=== PATIENT | male | born 1965 | race African-American/Black ===

== ENCOUNTER 2016-05-19 10:48 | Emergency (ER) | payer BC ==
[~2016-05-19] VITALS: Ht 177.8 cm; Wt 79.4 kg
[2016-05-19] MEDS ORDERED: ANASTROZOLE1 MG PO (11:00)
[2016-05-19] MEDS ORDERED: TESTOSTERO200 MG/1 M IM (11:00)
[2016-05-19] MEDS ORDERED: REPATHA SY140 MG/1 M SQ (11:00)
[2016-05-19] MEDS ORDERED: Spironolactone ORAL (11:00)
[2016-05-19] MEDS ORDERED: TRUVADA 200 MG1 EAC1 ORAL (11:00)
[2016-05-19] MEDS ORDERED: CARVEDILOL25 MG ORAL (11:00)
[2016-05-19 11:10] VITALS: BP 156/102
[2016-05-19] MEDS ORDERED: Ketorolac 30mg Inj IV ONE (11:15)
[2016-05-19 11:34] LABS: APPEARANCE,URINE SLIGHTLY CLOUDY
[2016-05-19 11:35] LABS: KETONES,URINE NEGATIVE (NEGATIVE); LEUKOCYTE ESTERASE ,URINE 3+ (NEGATIVE); NITRITE,URINE NEGATIVE (NEGATIVE); PROTEIN,URINE 3+ (NEGATIVE); RBC,URINE 20-30 /HPF (0 - 0); SQUAMOUS EPITHELIAL CELL,UR FEW /LPF (NONE/OCC); UROBILINOGEN,URINE NORMAL MG/DL (0.0-1.0); WBC,URINE 30-40 /HPF (0 - 0)
[2016-05-19 11:36] LABS: BACTERIA,URINE FEW /HPF
[2016-05-19 11:50] LABS: BASOPHILS % (AUTO) 0.9 % (0.0-2.0); MEAN CORPUSCULAR HEMOGLOBIN 29.6 PG (27.0-31.0); MEAN CORPUSCULAR HGB CONC 32.7 G/DL (32.0-36.0); MEAN CORPUSCULAR VOLUME 91 FL (80-99); MEAN PLATELET VOLUME 7.6 FL (6.5-10.1); MONOCYTES % (AUTO) 7.8 % (1.0-10.0); NEUTROPHILS % (AUTO) 74.3 % (45.0-75.0); PLATELET COUNT 180 K/UL (150-450); RED BLOOD COUNT 4.77 M/UL (4.70-6.10); RED CELL DISTRIBUTION WIDTH 14.8 % (11.6-14.8); WHITE BLOOD COUNT 8.5 K/UL (4.8-10.8)
[2016-05-19 12:08] LABS: ALANINE AMINOTRANSFERASE 18 U/L (3-41); ALBUMIN/GLOBULIN RATIO 1.3 (1.0-2.7); ANION GAP 15 (5-15); ASPARTATE AMINO TRANSFERASE 22 U/L (5-40); CARBON DIOXIDE 25 mEQ/L (20-30); CHLORIDE 97 mEQ/L (98-107); CREATININE 1.1 mg/dL (0.7-1.2); GLOMERULAR FILTRATION RATE > 60 mL/min (>60); HEMOLYSIS 3; LIPASE 19 U/L (< 60); SODIUM 137 mEQ/L (135-145); TOTAL PROTEIN 7.2 g/dL (6.6-8.7)
[2016-05-19 12:30] VITALS: BP 123/70
[2016-05-19] MEDS ORDERED: IBUPROFEN600 MG ORAL (12:45)
[2016-05-19] MEDS ORDERED: Cephalexin 500mg cap ORAL ONE (12:45)
[2016-05-19] MEDS ORDERED: KEFLEX500 MG ORAL (12:45)
[2016-05-19 13:03] VITALS: BP 123/70
--- NOTE | 2016-05-19 14:26 | Emergency Room Report ---
History of Present Illness General Chief Complaint: Male Urogenital Problems Source: Patient Present Illness HPI 50-year-old male presents ED for evaluation. Patient states that this morning he noticed blood in his urine. Notes dysuria. Notes some lower back pain on the left side. Pain is throbbing, 5/10, nonradiating. No other aggravating or relieving factors. Denies fevers or chills. Denies abdominal pain. Denies nausea or vomiting. Denies any other associated symptoms Allergies: Coded Allergies: No Known Allergies (Unverified , 05/19/16) Patient History Past Medical History: HTN Past Surgical History: none Pertinent Family History: none Social History: Denies: alcohol use, drug use, smoking Immunizations: UTD Reviewed Nursing Documentation: PMH: Agreed, PSxH: Agreed Nursing Documentation-PMH Past Medical History: No Stated History Hx Hypertension: Yes Review of Systems All Other Systems: negative except mentioned in HPI Physical Exam Vital Signs Date Time Temp Pulse Resp B/P Pulse Ox O2 Delivery O2 Flow Rate FiO2 05/19/16 10:51 98.6 99 14 156/102 99 05/19/16 12:30 Room Air Sp02 EP Interpretation: reviewed, normal General Appearance: no apparent distress, alert, GCS 15, non-toxic Head: normocephalic Eyes: bilateral eye PERRL, bilateral eye normal inspection ENT: normal ENT inspection Neck: normal inspection Respiratory: chest non-tender, lungs clear, normal breath sounds, speaking full sentences Cardiovascular #1: regular rate, rhythm, no edema Gastrointestinal: normal bowel sounds, non tender, soft, non-distended, no rebound Rectal: deferred Genitourinary: CVA tenderness (L) Musculoskeletal: back normal Neurologic: alert, oriented x3, responsive, motor strength/tone normal, sensory intact, speech normal Psychiatric: normal inspection Skin: normal inspection Lymphatic: normal inspection Medical Decision Making Diagnostic Impression: Primary Impression: Pyelonephritis ER Course Hospital Course 50-year-old M presents to ED with L flank pain, hematuria Differential diagnosis includes-appendicitis, cholecystitis, kidney stone, pyelonephritis Clinical course Patient placed on stretcher. After initial history and physical I ordered labs , IV fluids, pain medications and CT scan Labs - no leukocytosis, electrolytes ok, LFTs normal, UA - hematuria, + bacteria CT scan thickened bladder, no kidney stones. ? pyelonephritis Patient appears clinically well. Nontoxic. Can be safely discharged with antibiotics given Keflex in ED I feel this is a highly complex case requiring extensive working including EKG/ Rhythm strip, Xray/CT/US, Blood/urine lab work, repeat exams while in ED, and administration of strong opiates/narcotics for pain control, admission to hospital or close patient follow up. Diagnosis - pyleonephritis Stable and discharged to home with Rx Keflex. Followup with PMD. Return to ED if symptoms recur or worsen Labs Test 05/19/16 11:05 05/19/16 11:35 Urine Color Red Urine Appearance Slightly cloudy Urine pH 8.0 (4.5-8.0) Urine Specific [place] 1.010 (1.005-1.035) Urine Protein 3+ (NEGATIVE) Urine Glucose (UA) Negative (NEGATIVE) Urine Ketones Negative (NEGATIVE) Urine Occult Blood 5+ (NEGATIVE) Urine Nitrite Negative (NEGATIVE) Urine Bilirubin Negative (NEGATIVE) Urine Urobilinogen Normal MG/DL (0.0-1.0) Urine Leukocyte Esterase 3+ (NEGATIVE) Urine RBC 20-30 /HPF (0 - 0) Urine WBC 30-40 /HPF (0 - 0) Urine Squamous Epithelial Cells Few /LPF (NONE/OCC) Urine Bacteria Few /HPF (NONE) White Blood Count 8.5 K/UL (4.8-10.8) Red Blood Count 4.77 M/UL (4.70-6.10) Hemoglobin 14.1 G/DL (14.2-18.0) Hematocrit 43.2 % (42.0-52.0) Mean Corpuscular Volume 91 FL (80-99) Mean Corpuscular Hemoglobin 29.6 PG (27.0-31.0) Mean Corpuscular Hemoglobin Concent 32.7 G/DL (32.0-36.0) Red Cell Distribution Width 14.8 % (11.6-14.8) Platelet Count 180 K/UL (150-450) Mean Platelet Volume 7.6 FL (6.5-10.1) Neutrophils (%) (Auto) 74.3 % (45.0-75.0) Lymphocytes (%) (Auto) 17.0 % (20.0-45.0) Monocytes (%) (Auto) 7.8 % (1.0-10.0) Eosinophils (%) (Auto) 0.0 % (0.0-3.0) Basophils (%) (Auto) 0.9 % (0.0-2.0) Sodium Level 137 mEQ/L (135-145) Potassium Level 4.0 mEQ/L (3.4-4.9) Chloride Level 97 mEQ/L (98-107) Carbon Dioxide Level 25 mEQ/L (20-30) Anion Gap 15 (5-15) Blood Urea Nitrogen 11 mg/dL (7-23) Creatinine 1.1 mg/dL (0.7-1.2) Estimat Glomerular Filtration Rate > 60 mL/min (>60) Glucose Level 124 mg/dL (74-106) Calcium Level 9.0 mg/dL (8.6-10.2) Total Bilirubin 0.8 mg/dL (0.0-1.2) Aspartate Amino Transf (AST/SGOT) 22 U/L (5-40) Alanine Aminotransferase (ALT/SGPT) 18 U/L (3-41) Alkaline Phosphatase 33 U/L (40-129) Total Protein 7.2 g/dL (6.6-8.7) Albumin 4.1 g/dL (3.5-5.2) Globulin 3.1 g/dL Albumin/Globulin Ratio 1.3 (1.0-2.7) Lipase 19 U/L (< 60) CT/MRI/US Diagnostic Results CT/MRI/US Diagnostic Results : Imaging Test Ordered: CT A/P Impression bladder thickening, hydroureter. no stones. ? pyelonephritis Last Vital Signs Date Time Temp Pulse Resp B/P Pulse Ox O2 Delivery O2 Flow Rate FiO2 05/19/16 13:03 98.5 89 16 123/70 99 Room Air Status: improved Disposition: HOME, SELF-CARE Condition: Stable Scripts Cephalexin* (KEFLEX*) 500 Mg Capsule 500 MG ORAL Q6H, #28 CAP 0 Refills Prov: RICH MARTINEZ M.D. 05/19/16 Ibuprofen* (MOTRIN*) 600 Mg Tablet 600 MG ORAL Q8H Y for For Pain, #30 TAB 0 Refills Prov: RICH MARTINEZ M.D. 05/19/16 Patient Instructions: Pyelonephritis, Adult RICH MARTINEZ M.D. May 19, 2016 14:26
--- NOTE | 2016-05-20 09:25 | Diagnostic Imaging Report ---
Indication: Abdominal pain Technique: CT scan of the abdomen and pelvis utilizing automated exposure control without intravenous or oral contrast. Axial, sagittal and coronal images were obtained. CT dose: Total DLP 719 mGycm; CTDI vol 13.8 mGy Comparison: None Findings: Evaluation of the solid organs is limited without intravenous contrast material. Lung bases are clear. Liver, adrenal glands, spleen, pancreas and gallbladder are grossly unremarkable. No renal or ureteral calculi are identified. There is questionable mild thickening of the bladder with minimal fullness of the bilateral ureters. The small bowel loops are normal in caliber. There is a circumaortic left renal vein. There is no free intraperitoneal fluid or air. There is no evidence of appendicitis. Degenerative changes of the spine are present. Impression: Mild apparent thickening of the bladder with minimal fullness of the bilateral ureters. Correlation with urinalysis recommended as infection is not excluded. No renal or ureteral calculi. Approximately 9 mm right renal hypodensity incompletely characterized probably a cyst. Other findings as above. The CT scanner at [facility] is accredited by the [employer] and the scans are performed using protocols designed to limit radiation exposure to as low as reasonably achievable to attain images of sufficient resolution adequate for diagnostic evaluation.
== END 2016-05-19 13:03 | disposition home or self-care (01) ==
LOC: EMR 11:38
DX: N12 Tubulo-interstitial nephritis, not specified as acute or chronic (principal); I10 Essential (primary) hypertension
CPT/HCPCS: 36415; 74176; 80053; 81003; 83690; 85025; 87086; 96360; 96374; 99284; J1885

== ENCOUNTER 2016-08-22 14:58 | Emergency (ER) | payer BC ==
[~2016-08-22] VITALS: Ht 177.8 cm; Wt 79.4 kg
[~2016-08-22 14:58] MED LIST: ANASTROZOLE1 MG PO; CARVEDILOL25 MG ORAL; IBUPROFEN600 MG ORAL; KEFLEX500 MG ORAL; REPATHA SY140 MG/1 M SQ; Spironolactone ORAL; TESTOSTERO200 MG/1 M IM; TRUVADA 200 MG1 EAC1 ORAL
[2016-08-22 15:11] VITALS: BP 134/96
[2016-08-22] MEDS ORDERED: Indomethacin 25mg cap ORAL ONE (15:15)
[2016-08-22 16:00] VITALS: BP 132/95
[2016-08-22] MEDS ORDERED: CEPHALEXIN500 MG ORAL (16:21)
[2016-08-22] MEDS ORDERED: TRAMADOL HCL50 MG ORAL (16:21)
[2016-08-22] MEDS ORDERED: BACTRIM DS TAB1 EAC1 ORAL (16:21)
[2016-08-22] MEDS ORDERED: IBUPROFEN600 MG ORAL (16:21)
[2016-08-22 16:27] VITALS: BP 132/95
--- NOTE | 2016-08-22 16:27 | Diagnostic Imaging Report ---
Indication: Pain Findings: 3 views of the left wrist were obtained. No acute fractures, malalignment, erosions or periostitis are identified. Bone mineralization is within normal limits. Soft tissues are unremarkable. Impression: Negative examination of the left wrist.
--- NOTE | 2016-08-22 20:47 | Emergency Room Report ---
History of Present Illness General Chief Complaint: Pain Source: Patient, Medical Record (JACKSON GAMBINO) Present Illness HPI The patient is a 51-year-old male presenting with left wrist pain which began yesterday. Pain is described as a tennis 10 sharp sensation and does not radiate. Pain worse with movement and touch. He has also noticed redness and swelling to the area. He denies previous history of gout or injury to the wrist. He does state that he had an infection of the left elbow one month prior which was treated with antibiotics successfully. he denies any other symptoms including fever, chills, numbness or tingling. He denies hx of gout. (JACKSON GAMBINO.Nat) Allergies: Coded Allergies: No Known Allergies (Unverified , 05/19/16) Patient History Past Medical History: see triage record Pertinent Family History: none Reviewed Nursing Documentation: PMH: Agreed, PSxH: Agreed (JACKSON GAMBINO) Nursing Documentation-PMH Past Medical History: No History, Except For Hx Hypertension: Yes (JACKSON GAMBINO P.Nat) Review of Systems All Other Systems: negative except mentioned in HPI (JACKSON GAMBINO P.AShona) Physical Exam Vital Signs Date Time Temp Pulse Resp B/P Pulse Ox O2 Delivery O2 Flow Rate FiO2 08/22/16 15:02 97.7 60 16 134/96 98 Room Air Sp02 EP Interpretation: reviewed, normal General Appearance: no apparent distress, alert, GCS 15, non-toxic Head: normocephalic, atraumatic Eyes: bilateral eye PERRL, bilateral eye normal inspection ENT: hearing grossly normal, normal pharynx, no angioedema, normal voice Musculoskeletal: back normal, gait/station normal, normal range of motion, swelling - L lateral wrist, tender - TTP over the L lateral wrist Neurologic: alert, oriented x3, responsive, motor strength/tone normal, sensory intact, speech normal Psychiatric: judgement/insight normal, memory normal, mood/affect normal, no suicidal/homicidal ideation Skin: normal turgor, other - erythema to the L lateral wrist. Hot to the touch Lymphatic: no adenopathy (JACKSON GAMBINO.AShona) Medical Decision Making PA Attestation Dr. Don is my supervising physician. Patient management was discussed with my supervising physician (JACKSON GAMBINO) Diagnostic Impression: Primary Impression: Cellulitis Qualified Codes: L03.114 - Cellulitis of left upper limb ER Course The patient is a 51-year-old male presenting with left wrist pain Ddx considered include but not limited to sprain/strain, fracture, contusion, gout, cellulitis PE: vitals WNL. NAD Left wrist: There is tenderness to palpation, erythema, and edema to the lateral region. Skin is hot to the touch. Full AROM. SILT Xray unremarkable. Uric acid WNL Pt will be treated for cellulitis and is given ER precautions. He will FU with PMD Laboratory Tests Test 08/22/16 15:35 Uric Acid 4.8 mg/dL (3.0-7.5) Lab Results Impression Uric acid WNL (JACKSON GAMBINO.Nat) ER Course Scribe documentation reviewed by me and is accurate. (Mike Don M.D.) Other X-Ray Diagnostic Results Other X-Ray Diagnostic Results : X-Ray Ordered: L wrist Date: Aug 22, 2016 EP Interpretation: Yes Findings: no fractures, no dislocation, no soft tissue swelling Number of Views: 3 PA Scribe Text I am acting as scribe for my supervising physician. My supervising physician's interpretation of the L wrist xrays are there are no fractures, dislocations or soft tissue swelling. (JACKSON GAMIBNO P.A.) Last Vital Signs Date Time Temp Pulse Resp B/P Pulse Ox O2 Delivery O2 Flow Rate FiO2 08/22/16 16:27 97.7 82 17 132/95 99 Room Air Status: improved (JACKSON GAMBINO P.A.) Disposition: HOME, SELF-CARE Condition: Improved Scripts Tramadol Hcl* (ULTRAM*) 50 Mg Tablet 50 MG ORAL Q6H Y for For Pain, #10 TAB 0 Refills Prov: TERZIAN,JACKSON P.A. 08/22/16 Ibuprofen* (MOTRIN*) 600 Mg Tablet 600 MG ORAL Q8H Y for For Pain, #30 TAB 0 Refills Prov: TERZIAN,JACKSON P.A. 08/22/16 Cephalexin* (KEFLEX*) 500 Mg Capsule 500 MG ORAL EVERY 6 HOURS, #28 CAP Prov: TERZIAN,JACKSON P.A. 08/22/16 Trimethoprim/Sulfamethoxazole 160/800* (BACTRIM DS TABLET*) 1 Each Tablet 1 TAB ORAL TWICE A DAY, #14 TAB Prov: JACKSON GAMBINO 08/22/16 Patient Instructions: Cellulitis Additional Instructions: I discussed my findings with the patient. All questions and concerns have been answered. Treatment and medication compliance have been addressed. I advised the patient that they need to follow up with PMD in 3-5 days. Return to ED if pain remains or worsens, numbness or tingling occurs, new rash is noticed, fever is noticed, or if needed for any reason. Patient verbalized understanding of discharge instructions. JACKSON GAMBINO Aug 22, 2016 20:47 Mike Don M.D. Aug 23, 2016 02:30
== END 2016-08-22 16:27 | disposition home or self-care (01) ==
LOC: EMR 15:34
DX: L03.114 Cellulitis of left upper limb (principal); I10 Essential (primary) hypertension
CPT/HCPCS: 36415; 84550; 99284